=== PATIENT | female | born 1945 | race African-American/Black ===

== ENCOUNTER → 2016-12-31 | Outpatient (CLI) | payer MEDICARE, BC | LOC: MC.RAD 11:00 | DX: Z12.31 Encounter for screening mammogram for malignant neoplasm of breast (principal) ==

== ENCOUNTER → 2018-02-02 | Outpatient (CLI) | payer MEDICARE, BC | LOC: MC.RAD 10:56 | DX: Z12.31 Encounter for screening mammogram for malignant neoplasm of breast (principal) ==

== ENCOUNTER → 2019-03-19 | Outpatient (CLI) | payer MEDICARE, BC | LOC: MC.RAD 10:12 | DX: Z12.31 Encounter for screening mammogram for malignant neoplasm of breast (principal) ==

== ENCOUNTER 2019-04-16 14:52 | Observation (INO) | payer MEDICARE, BC ==
[~2019-04-16] VITALS: Ht 162.6 cm; Wt 68.4 kg
[2019-04-16 17:07] LABS: BASO % 0.3 % (0.0-2.0); EOS % 0.1 % (0-4.0); GRAN # 10.3 (1.4-6.5); GRAN % 75.4 % (42.2-75.2); HEMATOCRIT 42.4 % (37.0-47.0); HEMOGLOBIN 14.2 g/dl (12.5-16.0); LYMPH # 2.3 (1.2-3.4); LYMPH % 16.5 % (20.0-51.0); MEAN CELL VOLUME 80 fl (80.0-100.0); MEAN CORPUSCULAR HEMOGLOBIN 27 pg (27.0-31.0); MEAN CORPUSCULAR HGB CONC 34 g/dl (33.0-37.0); MONO % 7.2 % (1.7-9.3); PLATELET COUNT 273 K/mm3 (130-400); RED BLOOD COUNT 5.33 M/mm3 (4.10-5.30); REDCELL DISTRIBUTION WIDTH-CV 14.1 % (11.5-14.5)
[2019-04-16] MEDS ORDERED: GLUCOPHAGE500 MG/TAB PO ×2 (17:13)
[2019-04-16] MEDS ORDERED: VITAMIN D31000 IU PO (17:14)
[2019-04-16 17:17] LABS: ALBUMIN 4.7 gm/dL (3.5-5.0); BILIRUBIN,TOTAL 0.6 mg/dL (0.0-1.0); C-REACTIVE PROTEIN 0.9 mg/dL (0.0-0.9); CALCIUM 9.7 mg/dL (8.4-10.2); CREATININE, serum 0.57 (0.52-1.25); POTASSIUM 3.6 mmol/L (3.4-5.0); TOTAL PROTEIN 8.4 gm/dL (6.4-8.2)
[2019-04-16 21:17] VITALS: BP 188/86; PULSE 82; TEMP 98.8
[2019-04-16] MEDS ORDERED: CARDIZEM CD 24240 MG PO (21:30)
[2019-04-16] MEDS ORDERED: LIPITOR 80MG80 MG PO (21:33)
[2019-04-16] MEDS ORDERED: ASPIRIN 81M81 MG/TA2 PO (21:35)
[2019-04-17] VITALS (15 sets, daily range): BP systolic 103–166; BP diastolic 53–83; PULSE 73–93; TEMP 97.8–99.1
--- NOTE | 2019-04-17 01:09 | NUR ---
Patient to the floor from ER around 2100. States pain is better than it was previously. IVF initiated per orders. Admission and initial assessment completed. Med rec completed. BP noted to be 188/86. Dr. Posada updated and ordered to give patient her home Cartia ER 240mg. This updated in the MAY and given to patient. Repeat blood pressure noted to be lower. After assessments were completed patient requested pain medication. 2mg Morphine given and effective. Patient scheduled for lap abbie at 0800. Patient now NPO. Will continue to monitor.
--- NOTE | 2019-04-17 07:45 | NUR ---
To surgery per bed with OR staff. No complaints. Family here.
--- NOTE | 2019-04-17 09:55 | NUR ---
Returned to room from PACU per bed. Denied pain. Bandaids x 3 CDI to abdomen. VSS. Family in room.
--- NOTE | 2019-04-17 15:37 | NUR ---
Plan: To return home locally. Assess: Patient indicated that her DTR Rosette Rossana Talavera [phone] is her emergency contact. Client indicated that she needs shower bars at home. Client indicated her ex-spouse Andrea is a support. Patient denies DPOA setup. PCP is Dr. Bland. Family is to transport. Patient uses [facility] for RX. No needs. Action: Educated on suppports and services. Nothing follows.
--- NOTE | 2019-04-17 18:30 | NUR ---
Denied pain or nausea. Took diet well. IV antibiotic infusing. VSS.
--- NOTE | 2019-04-17 20:00 | NUR ---
Report received. Assumed care for night warehouse manager. Assessment complete. A&Ox3. Denies pain/shortness of breath/nasuea. Lap sites x3-C/D/I-covered with bandaids. Encouraged to ambulate in hallways to increase flatus. Verbalizes understanding. Plan of care discussed for this shift. Denies questions/concerns. Call light in reach/bed in low position/wheels locked. Will monitor.
[2019-04-18] VITALS: BP 131/53; PULSE 66; TEMP 98.1
[2019-04-18 04:00] VITALS: BP 136/48; PULSE 64; TEMP 98
[2019-04-18 08:25] VITALS: BP 126/47; PULSE 65; TEMP 98.5
--- NOTE | 2019-04-18 09:00 | NUR ---
Afebrile. Denied pain except for brief shoulder pain. Bandaids to abdomen CDI. Took diet well. Ambulatory in room by self.
[2019-04-18 12:14] VITALS: BP 145/63; PULSE 62; TEMP 98.2
[2019-04-18 15:47] VITALS: BP 146/62; PULSE 62; TEMP 98.5
--- NOTE | 2019-04-18 18:00 | NUR ---
No complaints. Dr. Posada saw patient. Dismissed to home per w/c with family.
== END 2019-04-18 18:00 | disposition home or self-care (01) ==
LOC: COL.ER 14:52 → SURG 19:04
PROVIDERS: Emergency Medicine; ADMIT Surgery
DX: K80.12 Calculus of gallbladder with acute and chronic cholecystitis without obstruction (principal); E11.9 Type 2 diabetes mellitus without complications; I10 Essential (primary) hypertension; K82.1 Hydrops of gallbladder; E78.5 Hyperlipidemia, unspecified; J45.909 Unspecified asthma, uncomplicated; G47.33 Obstructive sleep apnea (adult) (pediatric); M19.90 Unspecified osteoarthritis, unspecified site; Z79.4 Long term (current) use of insulin; Z79.82 Long term (current) use of aspirin; Z90.710 Acquired absence of both cervix and uterus
CPT/HCPCS: G0378; J0690; J1100; J1815; J2270; J2405; J2543; J2704; J3010; J7030; Q9967

== ENCOUNTER → 2020-03-21 | Outpatient (CLI) | payer MEDICARE, BC ==
[~2020-03-21] MED LIST: ASPIRIN 81M81 MG/TA2 PO; CARDIZEM CD 24240 MG PO; GLUCOPHAGE500 MG/TAB PO; LIPITOR 80MG80 MG PO; VITAMIN D31000 IU PO
== END ==
LOC: MC.RAD 14:15
DX: Z12.31 Encounter for screening mammogram for malignant neoplasm of breast (principal)

== ENCOUNTER → 2021-04-24 | Outpatient (CLI) | payer MEDICARE, BC | LOC: MC.RAD 13:00 | DX: Z12.31 Encounter for screening mammogram for malignant neoplasm of breast (principal) ==

== ENCOUNTER → 2022-05-24 | Outpatient (CLI) | payer MEDICARE, BC | LOC: MC.RAD 12:49 | DX: Z12.31 Encounter for screening mammogram for malignant neoplasm of breast (principal) ==